=== PATIENT | female | born 1990 | race African-American/Black ===

== ENCOUNTER 2017-12-18 23:12 | Emergency (ER) | payer OTHER ==
[~2017-12-18 23:12] MED LIST: IBUP-232 PO; Z.0.NO CURRENT MEDS
[2017-12-18 23:32] VITALS: BP 125/72; PULSE 75; RESP 16; TEMP 98.6; O2SAT 96
--- NOTE | 2017-12-18 23:44 | PD ---
HPI Chief Complaint: Psychiatric Symptoms Time Seen by Provider: 23:25 Travel History International Travel<30 days: No Contact w/Intl Traveler<30days: No Traveled to known affect area: No History of Present Illness HPI 27-year-old black female presents to the emergency department under Vicente act by PD. Patient had contacted PD advising them that she was feeling depressed and suicidal. She states that she has no plan on hurting herself. She states that she is overwhelmed with stressors at home. She states that her sister is in halfway for capital murder. Her court date is coming up. Her sister had called her asking for money. She also states that her father is in [facility] with chest pain. Patient states that she seems overwhelmed. She has been drinking this evening. She states that she had gotten out of her boyfriend's truck which is raised and she accidentally struck her left face getting out. She denies loss of consciousness. She did sustain some bruising around her eye. No visual changes. No nausea vomiting. No neck or back pain. Symptoms are moderate. Exacerbated by stressors at home. No alleviating factors. PFSH Past Medical History Narrative Medical Migraines Diminished Hearing: No Headaches: Yes Migraines: Yes Tetanus Vaccination: < 5 Years Past Surgical History Narrative Surgical Left eye surgery Social History Alcohol Use: No Tobacco Use: No Substance Use: No Allergies-Medications (Allergen,Severity, Reaction): Coded Allergies: No Known Allergies (Verified Adverse Reaction, Unknown, 12/18/17) Reported Meds & Prescriptions Reported Meds & Active Scripts Active Review of Systems General / Constitutional: No: Fever Eyes: No: Diploplia, Blurred Vision, Photophobia, Redness, Pain, Visual changes HENT: No: Headaches Cardiovascular: No: Chest Pain or Discomfort Respiratory: No: Shortness of Breath Gastrointestinal: No: Abdominal Pain Genitourinary: No: Dysuria Musculoskeletal: No: Pain Skin: Positive Rash Neurologic: No: Weakness Psychiatric: Positive: Depression, Suicidal Ideations, Mood Disorder, Substance Abuse, No: Anxiety, Disorder of Thought, Homicidal Ideation Endocrine: No: Polydipsia Hematologic/Lymphatic: No: Easy Bruising Physical Exam Narrative GENERAL: Well-nourished, well-developed patient. SKIN: Warm and dry. Patient has ecchymosis to the left periorbital area. HEAD: Normocephalic and left periorbital ecchymosis no bony tenderness. EYES: No scleral icterus. No injection or drainage. ENT: No nasal drainage noted. No septal hematoma. No epistaxis. Mucous membranes pink. Airway patent. NECK: Supple, trachea midline. Moves head freely without obvious discomfort. CARDIOVASCULAR: Regular rate and rhythm without murmurs, gallops, or rubs. RESPIRATORY: Breath sounds equal bilaterally. No accessory muscle use. GASTROINTESTINAL: Abdomen soft, non-tender, nondistended. EXTREMITIES: No cyanosis or edema. BACK: Nontender without obvious deformity. No CVA tenderness. NEURO: Patient is alert and oriented. no sensorimotor deficits. Nonfocal. Normal speech. PSYCH: No delusions. No auditory or visual hallucinations. Data Data Last Documented VS Vital Signs Date Time Temp Pulse Resp B/P (MAP) Pulse Ox O2 Delivery O2 Flow Rate FiO2 12/18/17 23:32 98.6 75 16 125/72 (89) 96 Room Air Orders Orders Complete Blood Count With Diff (12/18/17 23:25) Comprehensive Metabolic Panel (12/18/17 23:25) Thyroid Stimulating Hormone (12/18/17 23:25) Urinalysis - C+S If Indicated (12/18/17 23:25) Psych Screen (12/18/17 23:25) Drug Screen, Random Urine (12/18/17 23:25) Alcohol (Ethanol) (12/18/17 23:25) Salicylates (Aspirin) (12/18/17 23:25) Tylenol (Acetaminophen) (12/18/17 23:25) Labs Laboratory Tests Test 12/18/17 23:30 12/18/17 23:35 Urine Color LIGHT-YELLOW Urine Turbidity CLEAR Urine pH 5.5 Urine Specific [place] 1.008 Urine Protein NEG mg/dL Urine Glucose (UA) NEG mg/dL Urine Ketones NEG mg/dL Urine Occult Blood NEG Urine Nitrite NEG Urine Bilirubin NEG Urine Urobilinogen LESS THAN 2.0 MG/DL Urine Leukocyte Esterase NEG Urine RBC 1 /hpf Urine WBC 2 /hpf Urine Squamous Epithelial Cells 1 /hpf Urine Mucus FEW /lpf Microscopic Urinalysis Comment CULT NOT INDICATED Urine Opiates Screen NEG Urine Barbiturates Screen NEG Urine Amphetamines Screen NEG Urine Benzodiazepines Screen NEG Urine Cocaine Screen NEG Urine Cannabinoids Screen POS White Blood Count 8.9 TH/MM3 Red Blood Count 4.52 MIL/MM3 Hemoglobin 13.0 GM/DL Hematocrit 39.1 % Mean Corpuscular Volume 86.6 FL Mean Corpuscular Hemoglobin 28.7 PG Mean Corpuscular Hemoglobin Concent 33.1 % Red Cell Distribution Width 14.2 % Platelet Count 236 TH/MM3 Mean Platelet Volume 8.6 FL Neutrophils (%) (Auto) 56.6 % Lymphocytes (%) (Auto) 28.7 % Monocytes (%) (Auto) 11.6 % Eosinophils (%) (Auto) 2.8 % Basophils (%) (Auto) 0.3 % Neutrophils # (Auto) 5.0 TH/MM3 Lymphocytes # (Auto) 2.6 TH/MM3 Monocytes # (Auto) 1.0 TH/MM3 Eosinophils # (Auto) 0.2 TH/MM3 Basophils # (Auto) 0.0 TH/MM3 CBC Comment DIFF FINAL Differential Comment Blood Urea Nitrogen 12 MG/DL Creatinine 0.64 MG/DL Random Glucose 95 MG/DL Total Protein 8.3 GM/DL Albumin 4.0 GM/DL Calcium Level 8.3 MG/DL Alkaline Phosphatase 67 U/L Aspartate Amino Transf (AST/SGOT) 15 U/L Alanine Aminotransferase (ALT/SGPT) 17 U/L Total Bilirubin 0.1 MG/DL Sodium Level 144 MEQ/L Potassium Level 3.7 MEQ/L Chloride Level 113 MEQ/L Carbon Dioxide Level 21.4 MEQ/L Anion Gap 10 MEQ/L Estimat Glomerular Filtration Rate 136 ML/MIN Thyroid Stimulating Hormone 3rd Gen 2.160 uIU/ML Salicylates Level 2.9 MG/DL Acetaminophen Level LESS THAN 2.0 MCG/ML Ethyl Alcohol Level 189 MG/DL [facility] Medical Decision Making Medical Screen Exam Complete: Yes Emergency Medical Condition: Yes Medical Record Reviewed: Yes Interpretation(s) Laboratory Tests Test 12/18/17 23:30 12/18/17 23:35 Urine Color LIGHT-YELLOW Urine Turbidity CLEAR Urine pH 5.5 Urine Specific [place] 1.008 Urine Protein NEG mg/dL Urine Glucose (UA) NEG mg/dL Urine Ketones NEG mg/dL Urine Occult Blood NEG Urine Nitrite NEG Urine Bilirubin NEG Urine Urobilinogen LESS THAN 2.0 MG/DL Urine Leukocyte Esterase NEG Urine RBC 1 /hpf Urine WBC 2 /hpf Urine Squamous Epithelial Cells 1 /hpf Urine Mucus FEW /lpf Microscopic Urinalysis Comment CULT NOT INDICATED Urine Opiates Screen NEG Urine Barbiturates Screen NEG Urine Amphetamines Screen NEG Urine Benzodiazepines Screen NEG Urine Cocaine Screen NEG Urine Cannabinoids Screen POS White Blood Count 8.9 TH/MM3 Red Blood Count 4.52 MIL/MM3 Hemoglobin 13.0 GM/DL Hematocrit 39.1 % Mean Corpuscular Volume 86.6 FL Mean Corpuscular Hemoglobin 28.7 PG Mean Corpuscular Hemoglobin Concent 33.1 % Red Cell Distribution Width 14.2 % Platelet Count 236 TH/MM3 Mean Platelet Volume 8.6 FL Neutrophils (%) (Auto) 56.6 % Lymphocytes (%) (Auto) 28.7 % Monocytes (%) (Auto) 11.6 % Eosinophils (%) (Auto) 2.8 % Basophils (%) (Auto) 0.3 % Neutrophils # (Auto) 5.0 TH/MM3 Lymphocytes # (Auto) 2.6 TH/MM3 Monocytes # (Auto) 1.0 TH/MM3 Eosinophils # (Auto) 0.2 TH/MM3 Basophils # (Auto) 0.0 TH/MM3 CBC Comment DIFF FINAL Differential Comment Blood Urea Nitrogen 12 MG/DL Creatinine 0.64 MG/DL Random Glucose 95 MG/DL Total Protein 8.3 GM/DL Albumin 4.0 GM/DL Calcium Level 8.3 MG/DL Alkaline Phosphatase 67 U/L Aspartate Amino Transf (AST/SGOT) 15 U/L Alanine Aminotransferase (ALT/SGPT) 17 U/L Total Bilirubin 0.1 MG/DL Sodium Level 144 MEQ/L Potassium Level 3.7 MEQ/L Chloride Level 113 MEQ/L Carbon Dioxide Level 21.4 MEQ/L Anion Gap 10 MEQ/L Estimat Glomerular Filtration Rate 136 ML/MIN Thyroid Stimulating Hormone 3rd Gen 2.160 uIU/ML Salicylates Level 2.9 MG/DL Acetaminophen Level LESS THAN 2.0 MCG/ML Ethyl Alcohol Level 189 MG/DL Differential Diagnosis MDM: High Differential diagnoses: Schizophrenia, schizoaffective disorder, bipolar, anxiety, depression, adjustment reaction, mood disorder NOS, ODD, depressive disorder NOS, substance induced mood disorder,infection,electrolyte abnormality , malingering. Narrative Course Mental health screening discussed with the patient. Psychiatric screen ordered. Patient is intoxicated. She has a soft tissue contusion to the left periorbital region. The patient is medically clear. This is medical clearance for psychiatric admission, alcohol intoxication, facial contusion Diagnosis Primary Impression: Medical clearance for psychiatric admission Additional Impressions: Alcohol intoxication Qualified Codes: F10.920 - Alcohol use, unspecified with intoxication, uncomplicated Facial contusion Qualified Codes: S00.83XA - Contusion of other part of head, initial encounter Condition: Stable Jabier Acosta Dec 18, 2017 23:44
[2017-12-18 23:50] LABS: BASOPHIL % 0.3 % (0.0-2.0); EOSINOPHIL # 0.2 TH/MM3 (0-0.4); EOSINOPHIL % 2.8 % (0.0-4.0); HEMATOCRIT 39.1 % (35.0-46.0); LYMPH % 28.7 % (9.0-44.0); LYMPHOCYTE # 2.6 TH/MM3 (1.0-4.8); MEAN CELL VOLUME 86.6 FL (80.0-100.0); MEAN CORPUSCULAR HEMOGLOBIN 28.7 PG (27.0-34.0); MEAN CORPUSCULAR HGB CONC 33.1 % (32.0-36.0); MEAN PLATELET VOLUME 8.6 FL (7.0-11.0); MONO % 11.6 % (0.0-8.0); NEUT % 56.6 % (16.0-70.0); PLATELET COUNT 236 TH/MM3 (150-450); RED BLOOD COUNT 4.52 MIL/MM3 (4.00-5.30); RED CELL DISTRIBUTION WIDTH 14.2 % (11.6-17.2); WHITE BLOOD COUNT 8.9 TH/MM3 (4.0-11.0)
[2017-12-18 23:54] LABS: BILIRUBIN, URINE NEG (NEG); BLOOD, URINE NEG (NEG); GLUCOSE,URINE NEG (NEG); KETONE, URINE NEG (NEG); MUCUS URINE FEW /lpf (OCC); NITRITE,URINE NEG (NEG); PH, URINE 5.5 (5.0-8.5); SQUAMOUS EPITHELIAL CELL URINE 1 /hpf (0-5); URINE COLOR LIGHT-YELLOW (YELLW/STRAW); URINE LEUKOCYTE ESTERASE NEG (NEG)
[2017-12-19 00:04] LABS: ALT (GPT) 17 U/L (10-53); AST (GOT) 15 U/L (15-37); BICARBONATE 21.4 MEQ/L (21.0-32.0); BLOOD UREA NITROGEN 12 MG/DL (7-18); CALCIUM 8.3 MG/DL (8.5-10.1); CHLORIDE 113 MEQ/L (98-107); CREATININE 0.64 MG/DL (0.50-1.00); GLOMERULAR FILTRATION RATE 136 ML/MIN (>89); GLUCOSE,RANDOM 95 MG/DL (74-106); SODIUM (NA) 144 MEQ/L (136-145)
[2017-12-19 00:14] LABS: ALKALINE PHOSPHATASE 67 U/L (45-117); TOTAL BILIRUBIN ADULT 0.1 MG/DL (0.2-1.0); TOTAL PROTEIN 8.3 GM/DL (6.4-8.2)
[2017-12-19 00:22] LABS: ACETAMINOPHEN LESS THAN 2.0 MCG/ML (10.0-30.0)
[2017-12-19 10:00] VITALS: BP 120/65; PULSE 78; RESP 16; O2SAT 98
[2017-12-19] MEDS ORDERED: ACETAMINOPHEN 325 MG TAB PO ONE (13:15)
[2017-12-19 15:00] VITALS: BP 117/56; PULSE 70; RESP 14; O2SAT 98
[2017-12-19 18:15] VITALS: BP 106/70; PULSE 77; RESP 20; TEMP 98; O2SAT 99
[2017-12-19 21:53] VITALS: BP 94/55; PULSE 62; RESP 18; TEMP 98.2; O2SAT 100
[2017-12-20 02:16] VITALS: BP 94/49; PULSE 63; RESP 18; TEMP 98.2; O2SAT 95
[2017-12-20 02:43] VITALS: BP 98/57; PULSE 74
[2017-12-20 06:36] VITALS: BP 107/57; PULSE 72; RESP 18; TEMP 98.6; O2SAT 100
--- NOTE | 2017-12-20 10:05 | PD ---
Physical Exam Date Seen by Provider: Dec 20, 2017 Time Seen by Provider: 10:04 Narrative 27-year-old female previously Vicente acted and medically cleared for psychiatric evaluation. Patient was seen by psychiatric services and deemed psychiatrically stable for discharge. Patient remains medically stable for discharge. Follow-up will be based on psychiatric note. Data Data Last Documented VS Vital Signs Date Time Temp Pulse Resp B/P (MAP) Pulse Ox O2 Delivery O2 Flow Rate FiO2 12/20/17 06:36 98.6 72 18 107/57 (74) 100 Room Air Orders Orders Complete Blood Count With Diff (12/18/17 23:25) Comprehensive Metabolic Panel (12/18/17 23:25) Thyroid Stimulating Hormone (12/18/17 23:25) Urinalysis - C+S If Indicated (12/18/17 23:25) Psych Screen (12/18/17 23:25) Drug Screen, Random Urine (12/18/17 23:25) Alcohol (Ethanol) (12/18/17 23:25) Salicylates (Aspirin) (12/18/17 23:25) Tylenol (Acetaminophen) (12/18/17 23:25) Diet Regular Basic (12/19/17 Breakfast) Acetaminophen (Tylenol) (12/19/17 13:15) Diet Regular Basic (12/20/17 Breakfast) Ed Discharge Order (12/20/17 10:01) Labs Laboratory Tests Test 12/18/17 23:30 12/18/17 23:35 Urine Color LIGHT-YELLOW Urine Turbidity CLEAR Urine pH 5.5 Urine Specific [place] 1.008 Urine Protein NEG mg/dL Urine Glucose (UA) NEG mg/dL Urine Ketones NEG mg/dL Urine Occult Blood NEG Urine Nitrite NEG Urine Bilirubin NEG Urine Urobilinogen LESS THAN 2.0 MG/DL Urine Leukocyte Esterase NEG Urine RBC 1 /hpf Urine WBC 2 /hpf Urine Squamous Epithelial Cells 1 /hpf Urine Mucus FEW /lpf Microscopic Urinalysis Comment CULT NOT INDICATED Urine Opiates Screen NEG Urine Barbiturates Screen NEG Urine Amphetamines Screen NEG Urine Benzodiazepines Screen NEG Urine Cocaine Screen NEG Urine Cannabinoids Screen POS White Blood Count 8.9 TH/MM3 Red Blood Count 4.52 MIL/MM3 Hemoglobin 13.0 GM/DL Hematocrit 39.1 % Mean Corpuscular Volume 86.6 FL Mean Corpuscular Hemoglobin 28.7 PG Mean Corpuscular Hemoglobin Concent 33.1 % Red Cell Distribution Width 14.2 % Platelet Count 236 TH/MM3 Mean Platelet Volume 8.6 FL Neutrophils (%) (Auto) 56.6 % Lymphocytes (%) (Auto) 28.7 % Monocytes (%) (Auto) 11.6 % Eosinophils (%) (Auto) 2.8 % Basophils (%) (Auto) 0.3 % Neutrophils # (Auto) 5.0 TH/MM3 Lymphocytes # (Auto) 2.6 TH/MM3 Monocytes # (Auto) 1.0 TH/MM3 Eosinophils # (Auto) 0.2 TH/MM3 Basophils # (Auto) 0.0 TH/MM3 CBC Comment DIFF FINAL Differential Comment Blood Urea Nitrogen 12 MG/DL Creatinine 0.64 MG/DL Random Glucose 95 MG/DL Total Protein 8.3 GM/DL Albumin 4.0 GM/DL Calcium Level 8.3 MG/DL Alkaline Phosphatase 67 U/L Aspartate Amino Transf (AST/SGOT) 15 U/L Alanine Aminotransferase (ALT/SGPT) 17 U/L Total Bilirubin 0.1 MG/DL Sodium Level 144 MEQ/L Potassium Level 3.7 MEQ/L Chloride Level 113 MEQ/L Carbon Dioxide Level 21.4 MEQ/L Anion Gap 10 MEQ/L Estimat Glomerular Filtration Rate 136 ML/MIN Thyroid Stimulating Hormone 3rd Gen 2.160 uIU/ML Salicylates Level 2.9 MG/DL Acetaminophen Level LESS THAN 2.0 MCG/ML Ethyl Alcohol Level 189 MG/DL [facility] Medical Record Reviewed: Yes Supervised Visit with GRUPO: Yes Narrative Course 27-year-old female previously Vicente acted and medically cleared for psychiatric evaluation. Patient was seen by psychiatric services and deemed psychiatrically stable for discharge. Patient remains medically stable for discharge. Follow-up will be based on psychiatric note. Diagnosis Primary Impression: Medical clearance for psychiatric admission Additional Impressions: Alcohol intoxication Qualified Codes: F10.920 - Alcohol use, unspecified with intoxication, uncomplicated Facial contusion Qualified Codes: S00.83XA - Contusion of other part of head, initial encounter Patient Instructions: General Instructions Departure Forms: Tests/Procedures Additional Instruction: Follow up with your PCP as planned. Disposition: DISCHARGE HOME Condition: Stable Abel Ann Dec 20, 2017 10:05
--- NOTE | 2017-12-20 13:38 | PD.PSY.CON ---
Provisional Diagnosis Admission Date [place] I. Alcohol-induced mood disorder, alcohol use disorder [place] II. Deferred History of Present Illness Service Psychiatry Consult Requested By ER Reason for Consult Under Vicente act Primary Care Physician No Primary Care Physician HPI Patient was seen this morning at 10 AM The patient is a 27-year-old -[place] woman, domiciled with her boyfriend, employed, without no previous psychiatric history, no previous psychiatric hospitalizations, no previous suicide attempts, he claims that she drinks alcohol occasionally, no significant medical history, who was brought to the emergency department under Vicente act by PD. Patient had contacted PD advising them that she was feeling depressed and suicidal. She states that she has no plan on hurting herself. She states that she is overwhelmed with stressors at home. She states that her sister is in shelter for capital murder. Her court date is coming up. Her sister had called her asking for money. She also states that her father is in [facility] with chest pain. Patient states that she seems overwhelmed. She has been drinking this evening "I was drunk". She states that she had gotten out of her boyfriend's truck which is raised and she accidentally struck her left face getting out. She denies loss of consciousness. She did sustain some bruising around her eye. She denies suicidal and homicidal ideation, she denies visual and auditory hallucinations. Her boyfriend Medina, , contacted by phone, explained that the patient was just drawn, he does not have any safety concern at this moment, he would come personally to the ER to pick her up. Review of Systems Constitutional: DENIES: Diaphoretic episodes, Fatigue, Fever, Weight gain, Weight loss, Chills, Dizziness, Change in appetite, Night Sweats Endocrine: DENIES: Abnorml menstrual pattern, Heat/cold intolerance, Polydipsia , Polyuria, Polyphagia Eyes: DENIES: Blurred vision, Diplopia, Eye inflammation, Eye pain, Vision loss , Photosensitivity, Double Vision Ears, nose, mouth, throat: DENIES: Tinnitus, Hearing loss, Vertigo, Nasal discharge, Oral lesions, Throat pain, Hoarseness, Ear Pain, Running Nose, Epistaxis, Sinus Pain, Toothache, Odynophagia Respiratory: DENIES: Apneas, Cough, Snoring, Wheezing, Hemoptysis, Sputum production, Shortness of breath Cardiovascular: DENIES: Chest pain, Palpitations, Syncope, Dyspnea on Exertion , PND, Lower Extremity Edema, Orthopnea, Claudication Gastrointestinal: DENIES: Abdominal pain, Black stools, Bloody stools, Constipation, Diarrhea, Nausea, Vomiting, Difficulty Swallowing, Anorexia Genitourinary: DENIES: Abnormal vaginal bleeding, Dysmenorrhea, Dyspareunia, Sexual dysfunction, Urinary frequency, Urinary incontinence, Urgency, Hematuria , Dysuria, Nocturia, Vaginal discharge Musculoskeletal: DENIES: Joint pain, Muscle aches, Stiffness, Joint Swelling, Back pain, Neck pain Integumentary: DENIES: Abnormal pigmentation, Pruritus, Rash, Nail changes, Breast masses, Breast skin changes, Nipple discharge Hematologic/lymphatic: DENIES: Bruising, Lymphadenopathy Immunologic/allergic: DENIES: Eczema, Urticaria Neurologic: DENIES: Abnormal gait, Headache, Localized weakness, Paresthesias, Seizures, Speech Problems, Tremor, Poor Balance Psychiatric: DENIES: Anxiety, Confusion, Mood changes, Depression, Hallucinations, Agitation, Suicidal Ideation, Homicidal Ideation, Delusions Past Family Social History Coded Allergies: No Known Allergies (Verified Adverse Reaction, Unknown, 12/18/17) Discontinued Reported Medications Miscellaneous (No Current Meds) Misc 05/15/11 Discontinued Scripts Ibuprofen (Ibuprofen) 600 Mg Tab, 600 MG PO TID for Arthritis Pain, #45 TAB 0 Refills Prov:Thony Gold MD 09/11/16 Family Psych History No family psychiatric history Social History Patient was born and raised in [place], she lives with her boyfriend [facility], employed, her highest level of education is 11th grade Patient's Strengths (min. 2) No psychiatric history Physical Exam Vital Signs Vital Signs Date Time Temp Pulse Resp B/P (MAP) Pulse Ox O2 Delivery O2 Flow Rate FiO2 12/20/17 10:20 12/20/17 06:36 98.6 72 18 100 Room Air Mental Status Examination Appearance: Appropriate Consciousness: Alert Orientation: x4 Motor Activity: Normal gait Speech: Unremarkable Language: Adequate Fund of Knowledge: Adequate Attention and Concentration: Adequate Memory: Unremarkable Mood: Appropriate Affect: Appropriate Thought Process & Associations: Intact Thought Content: Appropriate Hallucination Type: None Delusion Type: None Suicidal Ideation: No Suicidal Plan: No Suicidal Intention: No Homicidal Ideation: No Homicidal Plan: No Homicidal Intention: No Insight: Adequate Judgment: Adequate Assessment & Plan Problem List: (1) Alcohol abuse with alcohol-induced mood disorder ICD Codes: F10.14 - Alcohol abuse with alcohol-induced mood disorder Assessment & Plan: On psychiatric evaluation today the patient does not present any neuropsychiatric symptoms that require an immediate psychiatric intervention. Patient denies suicidal or homicidal ideation, she denies visual and auditory hallucinations. She does not meet criteria for involuntary psychiatric admission at this moment. vicente act will be lifted. Assessment & Plan Estimated LOS: Jarrett Sparks MD Dec 20, 2017 13:38
== END 2017-12-20 11:01 | disposition home or self-care (01) ==
LOC: NEPD 23:12 → NEPJ 12-20 11:01
DX: F10.14 Alcohol abuse with alcohol-induced mood disorder (principal); Y90.6 Blood alcohol level of 120-199 mg/100 ml; S00.83XA Contusion of other part of head, initial encounter; W22.8XXA Striking against or struck by other objects, initial encounter; F32.9 Major depressive disorder, single episode, unspecified; R45.851 Suicidal ideations
CPT/HCPCS: 80053; 80307; 81001; 84443; 85025; 99284